=== PATIENT | female | born 1995 | race Caucasian/White ===

== ENCOUNTER 2017-07-08 02:52 | Inpatient (IN) | payer OTHER ==
[2017-07-08] MEDS ORDERED: BUTORPHANOL 2 MG INJ IV ×2 (04:30)
[2017-07-08] MEDS ORDERED: METHYLERGONOVINE 0.2 MG INJ IM (04:30)
[2017-07-08] MEDS ORDERED: OXYTOCIN 30 UNITS/LR 500 ML IV ×2 (04:30)
[2017-07-08] MEDS ORDERED: IBUPROFEN 600 MG TAB PO (04:30)
[2017-07-08] MEDS ORDERED: CARBOPROST 250 MCG INJ IM (04:30)
[2017-07-08] MEDS ORDERED: HYDROCODONE/APAP (5/325) TAB PO (04:30)
[2017-07-08] MEDS ORDERED: AMPICILLIN 2 GM/NS (PMX) 100 ML IV (04:30)
[2017-07-08] MEDS ORDERED: MISOPROSTOL 200 MCG TAB PR (04:30)
[2017-07-08 05:23] LABS: ADD MAN DIFF? NO
[2017-07-08 05:27] LABS: BASOPHILS % 0.3 % (0.0-2.0); EOSINOPHILS # 0.1 10^3/ul (0.0-0.5); HEMATOCRIT 34.3 % (37.0-47.0); HEMOGLOBIN 11.8 g/dl (12.0-16.0); LYMPHOCYTES # 2.4 10^3/ul (0.8-2.9); LYMPHOCYTES % 26.7 % (15.0-51.0); MEAN CORPUSCULAR HEMOGLOBIN 29.6 pg (29.0-33.0); MEAN CORPUSCULAR HGB CONC 34.4 g/dl (32.0-37.0); MEAN PLATELET VOLUME 10.3 fl (7.4-10.4); MONOCYTE # 0.5 10^3/ul (0.3-0.9); NEUTROPHIL # 5.8 10^3/ul (1.6-7.5); NEUTROPHILS % 65.6 % (39.0-77.0); PLATELET COUNT 220 10^3/UL (140-415); RED BLOOD COUNT 3.99 10^6/ul (4.20-5.40); RED CELL DISTRIBUTION WIDTH 13.9 % (11.5-14.5)
[2017-07-08 05:27] LABS: WHITE BLOOD COUNT 8.9 10^3/ul (4.8-10.8)
[2017-07-08 05:45] LABS: ALANINE AMINOTRANSFERASE 16 IU/L (13-69); ALBUMIN 3.5 g/dl (3.3-4.9); ALBUMIN/GLOBULIN RATIO 1.16; ALKALINE PHOSPHATASE 151 IU/L (42-121); ANION GAP 17 (8-16); ASPARTATE AMINO TRANSFERASE 14 IU/L (15-46); BILIRUBIN,INDIRECT 0.1 mg/dl (0-1.1); BILIRUBIN,TOTAL 0.1 mg/dl (0.2-1.3); BLOOD UREA NITROGEN 9 mg/dl (7-20); CALCIUM 9.1 mg/dl (8.4-10.2); CARBON DIOXIDE 20 mmol/L (21-31); CHLORIDE 109 mmol/L (97-110); CREATININE 0.53 mg/dl (0.44-1.00); GLUCOSE 88 mg/dl (70-220); POTASSIUM 3.6 mmol/L (3.5-5.1); SODIUM 142 mmol/L (135-144); TOTAL PROTEIN 6.5 g/dl (6.1-8.1)
[2017-07-08 05:54] LABS: INR 0.93; PROTIME 12.6 Sec (11.9-14.9)
[2017-07-08 05:55] LABS: PARTIAL THROMBOPLASTIN TIME 27.5 Sec (25.0-35.0)
[2017-07-08 06:15] LABS: HEPATITIS B SURFACE ANTIGEN NEGATIVE (NEGATIVE)
[2017-07-08] MEDS: LACTATED RINGER'S 1,000 ML IV ×5 (06:15→21:03)
[2017-07-08] MEDS ORDERED: AMPICILLIN 1 GM/NS (PMX) 50 ML IV (08:30)
[2017-07-08] MEDS ORDERED: FENTAnyl 2MCG/ML-ROPIV 0.2% 100 ML (09:58)
[2017-07-08] MEDS ORDERED: ONDANSETRON 4 MG INJ IV (12:00)
[2017-07-08] MEDS ORDERED: NALOXONE (0.4 MG/ML) INJ IV (12:00)
[2017-07-08] MEDS ORDERED: DIPHENHYDRAMINE 50 MG INJ IV (12:00)
[2017-07-08] MEDS: FENTAnyl 2MCG/ML-ROPIV 0.2% 100 ML BAG EPI ×2 (13:06→18:32)
[2017-07-08] MEDS: AMPICILLIN 2 GM/NS (PMX) 100 ML IVPB (13:06)
[2017-07-08] MEDS: OXYTOCIN 30 UNITS/LR 500 ML IV (13:41)
[2017-07-08 15:50] LABS: RAPID PLASMA REAGIN NONREACTIVE (NR)
[2017-07-08] MEDS: AMPICILLIN 1 GM/NS (PMX) 50 ML IVPB ×2 (16:59→21:02)
[2017-07-09] MEDS: AMPICILLIN 1 GM/NS (PMX) 50 ML IVPB ×3 (01:02→09:00)
[2017-07-09] MEDS: LACTATED RINGER'S 1,000 ML IV (01:03)
[2017-07-09] MEDS: FENTAnyl 2MCG/ML-ROPIV 0.2% 100 ML BAG EPI (02:34)
[2017-07-09] MEDS: LIDOCAINE 1% (MPF) 30 ML INJ INJ (05:40)
[2017-07-09] MEDS ORDERED: OXYTOCIN 30 UNITS/LR 500 ML IV (06:00)
[2017-07-09] MEDS ORDERED: MISOPROSTOL 200 MCG TAB PR (06:00)
[2017-07-09] MEDS: OXYTOCIN 30 UNITS/LR 500 ML IV (06:00)
[2017-07-09] MEDS ORDERED: DIBUCAINE 1% 30 GM OINT PR (06:00)
[2017-07-09] MEDS ORDERED: METHYLERGONOVINE 0.2 MG INJ IM (06:00)
[2017-07-09] MEDS ORDERED: OXYCODONE/ASPIRIN (4.88/325) TAB PO ×2 (06:00)
[2017-07-09] MEDS ORDERED: ONDANSETRON 4 MG INJ IV (06:00)
[2017-07-09] MEDS ORDERED: CARBOPROST 250 MCG INJ IM (06:00)
[2017-07-09] MEDS: IBUPROFEN 600 MG TAB PO ×4 (08:52→23:36)
[2017-07-09] MEDS: BENZOCAINE 20% 56 ML SPRAY TOP (18:14)
[2017-07-09] MEDS: LANOLIN 7 GM TUBE TOP (18:15)
[2017-07-09] MEDS: WITCH HAZEL/GLYCERIN PAD PR (18:15)
[2017-07-10] MEDS: IBUPROFEN 600 MG TAB PO ×4 (05:41→23:52)
[2017-07-10 11:34] LABS: ADD MAN DIFF? NO
[2017-07-10 11:42] LABS: BASOPHILS % 0.5 % (0.0-2.0); EOSINOPHILS # 0.2 10^3/ul (0.0-0.5); EOSINOPHILS % 2.4 % (0.0-7.0); HEMATOCRIT 30.3 % (37.0-47.0); HEMOGLOBIN 10.2 g/dl (12.0-16.0); LYMPHOCYTES # 1.5 10^3/ul (0.8-2.9); MEAN CORPUSCULAR HEMOGLOBIN 29.9 pg (29.0-33.0); MEAN CORPUSCULAR HGB CONC 33.7 g/dl (32.0-37.0); MEAN CORPUSCULAR VOLUME 88.9 fl (82.0-101.0); MEAN PLATELET VOLUME 10.5 fl (7.4-10.4); MONOCYTE # 0.4 10^3/ul (0.3-0.9); MONOCYTES % 4.3 % (0.0-11.0); NEUTROPHIL # 6.7 10^3/ul (1.6-7.5); NEUTROPHILS % 75.5 % (39.0-77.0); PLATELET COUNT 205 10^3/UL (140-415); RED BLOOD COUNT 3.41 10^6/ul (4.20-5.40); RED CELL DISTRIBUTION WIDTH 14.4 % (11.5-14.5)
[2017-07-10 11:42] LABS: WHITE BLOOD COUNT 8.9 10^3/ul (4.8-10.8)
[2017-07-11] MEDS: IBUPROFEN 600 MG TAB PO ×2 (06:03→11:31)
[2017-07-11 12:33] LABS: RUBELLA ANTIBODY - IGG 1.25 index; RUBELLA ANTIBODY - IGM <20.00 AU/mL
== END 2017-07-11 12:15 | disposition home or self-care (01) | DRG 775 ==
LOC: OBT 02:52 → PP1 07-09 13:44 → L-D 02:54 → OBT 04:14 → L-D 03:52
PROC: 10E0XZZ Delivery of Products of Conception, External Approach (ICD-10-PCS; principal; 2017-07-09)
PROC: 0W8NXZZ Division of Female Perineum, External Approach (ICD-10-PCS; 2017-07-09)
DX: O80 Encounter for full-term uncomplicated delivery (principal); Z3A.39 39 weeks gestation of pregnancy; Z37.0 Single live birth
CPT/HCPCS: 36415; 62319; 76815; 80053; 85025; 85610; 85730; 86592; 86762; 86850; 86900; 86901; 87340; 96360; 99464